=== PATIENT | male | born 1945 | race Caucasian/White ===

== ENCOUNTER → 2019-02-11 | Day surgery (SDC) | payer MEDICARE ==
--- NOTE | 2019-02-10 15:50 | Diagnostic Imaging Report ---
EXAM: CHEST 2 VIEWS, PA and lateral DATE: 02/10/2019 Time stamp on exam: 1:32 PM INDICATION: Preoperative COMPARISON: None FINDINGS: LINES/TUBES: None LUNGS: No consolidations or edema. Left retrocardiac calcified granulomas. PLEURA: No effusions or pneumothorax. HEART AND MEDIASTINUM: Normal size and contour. BONES AND SOFT TISSUES: Prominent left lower lung field nipple shadow. Degenerative changes of the spine. IMPRESSION: No acute thoracic abnormality. Signed by: Dr. Kristopher Buenrostro DO on 02/10/2019 3:47 PM
[~2019-02-11] MED LIST: CIPROFLOXACIN; DEXAMETHASONE SOD PHOS INJ 4 MG/ML VIAL ONE; EPHEDRINE SULFATE INJ 50 MG/10 ML SYR ONE; FENTANYL CITRATE/PF 100MCG/2 ML INJ ONE; GLYCOPYRROLATE INJ 1MG/ 5 ML SYR ONE; HYDRALAZINE HCL25 MG PO; IOPAMIDOL 610MG/1ML 300 MG/ML VIAL IV ONE; LEVOFLOXACIN 500MG/D5W 100ML 100 ML IV ONE; LIDOCAINE HCL 2% LOCAL INJ 5 ML SDV VIAL INJ ONE; MENS MULTIVITAMIN PO; ONDANSETRON HCL INJ 2MG/ML 2ML 2 MG/ML VIAL ONE; OXYBUTYNIN CHLOR5 MG PO; PROPOFOL IV EMULSION 10 MG/ML 20 ML VIAL ONE; SEVOFLURANE INHAL SOLN 250 ML PEN BTL ONE; ULTRAM50 MG PO; VELAFAXINE PO; Z.0.AMLODIPINE BESY1 PO; Z.0.ATENOLOL50 MG PO; Z.0.BABY ASPIRIN81 M PO; Z.0.GEMFIBROZIL600 M PO; Z.0.HYDRALAZINE HCL5 PO; Z.0.LEVOTHYROXINE50 PO; Z.0.LEXAPRO10 MG PO; Z.0.PRAVASTATIN SOD4 PO; Z.0.TAMSULOSIN HCL0. PO
--- OUTSIDE RECORDS SUMMARY | 2019-02-11 07:29 | XMS REPORT ---
Author Author [facility] Address Unknown Phone Unavailable Care Team Providers Care Nephrologist Name Role Phone Claudia TALAVERA Unavailable Unavailable Problems This patient has no known problems. Allergies, Adverse Reactions, Alerts This patient has no known allergies or adverse reactions. Medications This patient has no known medications. Results Test Description Test Time Test Comments Text Results Atomic Results Result Comments CHEST 2 VIEWS 2019-02-10 15:45:00 [place] [address] Patient Name: FREDA SOOD MR #: [id number] : 1945 Age/Sex: 73/M Req #: [id number] Adm Physician: Ordered by: ROSITA TALAVERA MD Report #: [id number] Location: OR Room/Bed: Procedure: [id number] DX/CHEST 2 VIEWS Exam Date: 02/10/19 Exam Time: 1340 REPORT STATUS: Signed EXAM: CHEST 2 VIEWS, PA and lateral DATE: 02/10/2019 Time stamp on exam: 1:32 PM INDICATION: Preoperative COMPARISON: None FINDINGS: LINES/TUBES: None LUNGS: No consolidations or edema. Left retrocardiac calcified granulomas. PLEURA: No effusions or pneumothorax. HEART AND MEDIASTINUM: Normal size and contour. BONES AND SOFT TISSUES: Prominent left lower lung field nipple shadow. Degenerative changes of the spine. IMPRESSION: No acute thoracic abnormality. Signed by: Dr. Danny Buenrostro DO on 02/10/2019 3:47 PM Dictated By: DANNY BUENROSTRO DO 1547 Transcribed By: LEELEE on 02/10/19 1540 COPY TO: ROSITA TALAVERA MD
--- OUTSIDE RECORDS SUMMARY | 2019-02-11 07:29 | XMS REPORT | Clinical Summary ---
Author Author [facility] Address Unknown Phone Unavailable Care Team Providers Care Spiral Tube Winder Name Role Phone Hafsa Euceda MD PCP Allergies Not on File Medications Not on file Active Problems Not on file Encounters Care Team Description Date Type Specialty Charlie Maradiaga MD Uric acid nephrolithiasis (Primary Dx); Calculus of other lower urinary tract location 02/09/2019 Transcribe Access Orders Jasbir Billingsley MD Malignant neoplasm of urinary bladder, unspecified site (HCC) 08/04/2018 Hospital Radiology Encounter Jasbir Billingsley MD Malignant neoplasm of urinary bladder, unspecified site (HCC) (Primary Dx) 07/29/2018 Transcribe Access Orders after 02/10/2018 Social History Date Tobacco Use Types Packs/Day Years Used Never Assessed Sex Assigned at Date Recorded Not on file Industry Job Start Date Occupation Not on file Not on file Not on file Travel End Travel History Travel Start No recent travel history available. Last Filed Vital Signs Not on file Plan of Treatment Care Team Description Date Type Specialty Alo Marie MD [address] [place], [place] [id number] 02/11/2019 Pre-Admit Pre-Admission Testing Testing Appointment Alo Marie MD [address] [place], [place] [id number] 02/18/2019 Hospital General Surgery Encounter Alo Marie MD [address] [place], [place] [address] OPEN RELEASE, CARPAL TUNNEL-LEFT WRIST 02/18/2019 Surgery General Surgery Health Maintenance Due Date Last Done Comments COLONOSCOPY SCREENING 1993 SHINGLES VACCINES (#1) 1993 65+ PNEUMOCOCCAL VACCINE 2008 (1 of 2 - PCV13) INFLUENZA VACCINE 03/19/2019 Procedures Comments Procedure Name Priority Date/Time Associated Diagnosis XR ABDOMEN 1 VW Routine 02/09/2019 Uric acid nephrolithiasis 2:35 PM CDT Calculus of other lower urinary tract location PET CT SKULL BASE TO MID Routine 08/04/2018 Malignant neoplasm of THIGH 1:00 PM [employer]PUTY DISTRICT CUST[employer] DIRECTOR urinary bladder, unspecified site (HCC) POC GLUCOSE Routine 08/04/2018 10:36 AM DEPUTY DISTRICT CUSTOMS DIRECTOR after 02/10/2018 Results * XR Abdomen 1 Vw (02/09/2019 2:35 PM CDT) Specimen Narrative Performed At EXAMINATION:XR ABDOMEN 1 VW [facility] INDICATION:N20.0 Calculus of kidney, N21.8 Other lower urinary tract calculus, n20.0 n20.1 COMPARISON:KUB from April 07, 2012 IMPRESSION: 1.Bilateral nephrolithiasis with a 6 mm calculus projecting over the right interpolar region, 5 mm calculus projecting over the left upper pole and 4 mm calculus projecting over the left lower pole. 2.Bowel gas pattern is nonspecific, nonobstructive. Vascular calcifications. 3.Degenerative changes of the osseous structures. Left lower lobe calcified granulomas [id number] Procedure Note Interface, Radiology Results Incoming - 02/09/2019 2:59 PM CDT EXAMINATION: XR ABDOMEN 1 VW INDICATION: N20.0 Calculus of kidney, N21.8 Other lower urinary tract calculus, n20.0 n20.1 COMPARISON:KUB from April 07, 2012 IMPRESSION: 1. Bilateral nephrolithiasis with a 6 mm calculus projecting over the right interpolar region, 5 mm calculus projecting over the left upper pole and 4 mm calculus projecting over the left lower pole. 2. Bowel gas pattern is nonspecific, nonobstructive. Vascular calcifications. 3. Degenerative changes of the osseous structures. Left lower lobe calcified granulomas [id number] Performing Organization Address City/State/Zipcode Phone Number [facility] [address] [place] [address] * PET/CT Skull Base To Mid Thigh (08/04/2018 1:00 PM DEPUTY DISTRICT CUSTOMS DIRECTOR) Specimen Narrative Performed At PROCEDURE:PET CT SKULL BASE TO MID THIGH [facility] INDICATION:Restaging bladder cancer.Subsequent treatment strategy. TECHNIQUE:Blood glucose measured at the time of injection was 101 mg/dL. The patient was then injected with 13.4 mCi of 18F-FDG, IV.Approximately one hour later, PET images were acquired from the skull base to the mid thighs. Corresponding, low dose, non-contrast CT scanning was performed as part of the attenuation correction process.Automated dose exposure control was utilized. COMPARISON:No relevant comparison imaging. FINDINGS: Head and neck:No suspicious brain uptake.Normal uptake is seen in the visualized sinuses, orbits, nasopharynx, and oropharynx.Uptake by the larynx is normal.No suspicious neck lymph node uptake. Chest:No abnormal mediastinal, hilar, or axillary lymph node uptake.No suspicious pulmonary uptake.Prior granulomatous disease. Abdomen:Normal uptake is seen in the stomach, spleen, pancreas, liver, and adrenal glands.No abnormal retroperitoneal or mesenteric lymph node uptake.Nonobstructing renal calculi. Pelvis:Physiologic bowel uptake.No abnormal pelvic sidewall or inguinal lymph node uptake.The bladder is not well evaluated, given urinary excretion of tracer. Review of the osseous structures demonstrates no suspicious uptake. IMPRESSION: 1.No evidence for metastatic bladder cancer. 2.Evaluation of the primary malignancy is not possible based on this study, given urinary excretion of tracer. [facility]-[id number] Procedure Note Interface, Radiology Results Incoming - 08/04/2018 3:53 PM DEPUTY DISTRICT CUSTOMS DIRECTOR PROCEDURE: PET CT SKULL BASE TO MID THIGH INDICATION: Restaging bladder cancer. Subsequent treatment strategy. TECHNIQUE: Blood glucose measured at the time of injection was 101 mg/dL. The patient was then injected with 13.4 mCi of 18F-FDG, IV. Approximately one hour later, PET images were acquired from the skull base to the mid thighs. Corresponding, low dose, non-contrast CT scanning was performed as part of the attenuation correction process. Automated dose exposure control was utilized. COMPARISON: No relevant comparison imaging. FINDINGS: Head and neck: No suspicious brain uptake. Normal uptake is seen in the visualized sinuses, orbits, nasopharynx, and oropharynx. Uptake by the larynx is normal. No suspicious neck lymph node uptake. Chest: No abnormal mediastinal, hilar, or axillary lymph node uptake. No suspicious pulmonary uptake. Prior granulomatous disease. Abdomen: Normal uptake is seen in the stomach, spleen, pancreas, liver, and adrenal glands. No abnormal retroperitoneal or mesenteric lymph node uptake. Nonobstructing renal calculi. Pelvis: Physiologic bowel uptake. No abnormal pelvic sidewall or inguinal lymph node uptake. The bladder is not well evaluated, given urinary excretion of tracer. Review of the osseous structures demonstrates no suspicious uptake. IMPRESSION: 1. No evidence for metastatic bladder cancer. 2. Evaluation of the primary malignancy is not possible based on this study, given urinary excretion of tracer. [facility]-[id number] Performing Organization Address City/State/Zipcode Phone Number [facility] [address] [place] [address] * POC glucose (08/04/2018 10:36 AM DEPUTY DISTRICT C[employer]S DIRECTOR) POC glucose 101 (H) 65 - 100 mg/dL [facility] Comment: HUGO BARNHART Meter ID: [id number] [facility] Jointer Machine: [facility] Specimen Performing Organization Address City/State/Zipcode Phone Number [facility] DEPARTMENT OF [address] [place] [address] PATHOLOGY AND GENOMIC MEDICINE [place] [facility] [place] [address] after 02/10/2018 Insurance Type Payer Benefit Subscriber ID Effective Phone Address Plan / Dates Group PPO HUMANA MEDICARE HUMANA xxxxxxxxx 2017-P MEDICARE resent PPO/PFFS/E [facility] Advance Directives Patient has advance care planning documents on file. For more information, pleas e contact: [facility] [address] [place] [address]
[2019-02-11 08:15] LABS: BASOPHILS % 0.1 % (0.0-1.0); EOSINOPHILS # (AUTO) 0.3 (0.0-0.4); EOSINOPHILS % 3.3 % (0.0-6.0); HEMATOCRIT 42.3 % (38.2-49.6); HEMOGLOBIN 14.7 g/dL (14.0-18.0); LYMPHOCYTES # (AUTO) 1.9 (1.0-3.2); LYMPHOCYTES % 23.5 % (18.0-39.1); MEAN CORPUSCULAR HEMOGLOBIN 30.3 pg (28-32); MEAN CORPUSCULAR HGB CONC 34.8 g/dL (31-35); MEAN CORPUSCULAR VOLUME 87.2 fL (81-99); MONOCYTES # (AUTO) 0.7 (0.2-0.8); MONOCYTES % 8.8 % (4.4-11.3); NEUTROPHILS # (AUTO) 5.2 (2.1-6.9); NEUTROPHILS % 64.1 % (38.7-80.0); PLATELET COUNT 201 x10e3/uL (140-360); RED BLOOD COUNT 4.85 x10e6/uL (4.3-5.7); RED CELL DISTRIBUTION WIDTH 13.2 % (11.7-14.4)
[2019-02-11 08:33] LABS: INR 0.92; PROTHROMBIN TIME 12.9 seconds (11.9-14.5)
[2019-02-11 08:34] LABS: PARTIAL THROMBOPLASTIN TIME 32.3 seconds (23.8-35.5)
[2019-02-11 08:38] LABS: ANION GAP 13.7 mmol/L (8-16); BLOOD UREA NITROGEN 14 mg/dL (7-26); BUN/CREATININE RATIO 16 (6-25); CALCIUM 9.6 mg/dL (8.4-10.2); CARBON DIOXIDE 26 mmol/L (22-29); CHLORIDE 103 mmol/L (98-107); CREATININE, SERUM 0.88 mg/dL (0.72-1.25); EST GLOMERULAR FILTRATION RATE > 60 ML/MIN (60-); GLUCOSE 96 mg/dL (74-118); POTASSIUM 3.7 mmol/L (3.5-5.1); SODIUM 139 mmol/L (136-145)
[2019-02-11 11:25] VITALS: BP 130/74
--- NOTE | 2019-02-12 07:51 | Operative Report ---
DATE OF PROCEDURE: 02/11/2019 SURGEON: Charlie Maradiaga MD PREOPERATIVE DIAGNOSES: 1. Bilateral renal calculi. a. Left renal calculi. 2. Upper pole renal calculus, 6 x 6 mm. 3. Left lower pole renal calculus, 6 x 6 mm. 4. Right renal calculus. 5. History of transitional cell carcinoma of the bladder. POSTOPERATIVE DIAGNOSES: 1. Bilateral renal calculi. a. Left renal calculi. 2. Upper pole renal calculus, 6 x 6 mm. 3. Left lower pole renal calculus, 6 x 6 mm. 4. Right renal calculus. 5. History of transitional cell carcinoma of the bladder. 6. No recurrence of his transitional cell carcinoma of the bladder. OPERATIONS: 1. Left renal ESWL 2000 shocks for the upper pole calculus. 2. 2000 shocks for the lower pole calculus. 3. Cystourethroscopy. SUPERVISOR [employer] DEPARTMENT: RONEL Dorsey. ANESTHETIC: General. DESCRIPTION OF PROCEDURE: Mr. Miranda is a 73-year-old male, who is very well known to me with a history of transitional cell carcinoma of the bladder. He has been followed for bilateral renal calculi, and at this point, the calculi have reached a size where they will be having more issues and problems. For this reason, he was brought for the ESWL and cystourethroscopy. This patient was placed on the table in the supine position and the left upper pole calculus was brought into position between F1 and F2 of the fluoroscopic monitor. The lithotripsy was started, starting at 2 kilovolts and slowly and gradually increased to 7 kilovolts. Observation of the stone pulverization was done at 200-250 shocks, and at 2000 shocks, it was felt that the stone has completely pulverized. The lithotripsy was then moved to the lower pole and again the lower pole calculus was brought into position between F1 and F2 of the fluoroscopic monitor. The lithotripsy was then started, starting at 2 kilovolts and again it is increasing to 7 kilovolts. Observation of the stone pulverization was done at 200-250 shocks, and at 2000 shocks, it was felt that the stone has completely pulverized. The lithotripsy was shut down and the patient was pulled back down on the table and placed on the table in the lithotomy position. The patient was prepped in a sterile manner. A #22-Welsh cystoscope was used and cystourethroscopy was performed and it was noted that the urethra was normal. The prostatic urethra was post resection and were resected. Cystoscopy was then performed using both right angle and the Foroblique lens and it was noted that the bladder mucosa was normal with no evidence of gross tumor, pathology, or any papillary lesions. The bladder wall was normal. Both ureteral orifices were seen and were within normal position configuration efflux. Plans for this patient is to be placed on Cipro 250 mg one twice a day for five days. Ultracet tablet one every 6 to 8 hours p.r.n. and was given 15. He is to return to the office in one week. At that time, a KUB will be performed and if the stone has completely pulverized and pass, we will go ahead after the right renal calculus. Charlie Maradiaga MD MA/LEONID /[id number]
== END | disposition home or self-care (01) ==
LOC: OR 07:08
PROVIDERS: ATTEND Specialist
DX: N20.0 Calculus of kidney (principal); Z85.51 Personal history of malignant neoplasm of bladder; G56.02 Carpal tunnel syndrome, left upper limb; I10 Essential (primary) hypertension; E78.5 Hyperlipidemia, unspecified; F32.9 Major depressive disorder, single episode, unspecified; Z01.810 Encounter for preprocedural cardiovascular examination; Z01.818 Encounter for other preprocedural examination; Z79.82 Long term (current) use of aspirin
CPT/HCPCS: 36415; 50590; 52000; 71046; 80048; 85025; 85610; 85730; 93005; J1100; J1956; J2001; J2405; J2704; J3490; J3010

== ENCOUNTER → 2019-03-04 | Day surgery (SDC) | payer MEDICARE ==
[~2019-03-04] MED LIST changes: -EPHEDRINE SULFATE INJ 50 MG/10 ML SYR ONE; -FENTANYL CITRATE/PF 100MCG/2 ML INJ ONE; -GLYCOPYRROLATE INJ 1MG/ 5 ML SYR ONE; -IOPAMIDOL 610MG/1ML 300 MG/ML VIAL IV ONE; +MIDAZOLAM HCL 2 MG/2 ML VIAL ONE; +PROMETHAZINE HCL (IM) 25 MG/ML VIAL ONE
--- OUTSIDE RECORDS SUMMARY | 2019-03-04 08:14 | XMS REPORT | Clinical Summary ---
Author Author [facility] Address Unknown Phone Unavailable Care Team Providers Care Gaggerman Name Role Phone Hafsa Euceda MD PCP Allergies No Known Allergies Medications End Date Status Medication Sig Dispensed Refills Start Date Active traMADol-acetaminophen TK ONE T 0 (ULTRACET) 37.5-325 mg EVERY 6-8 9 per tablet HOURS PRN Active venlafaxine XR 0 (EFFEXOR-XR) 150 MG 24 hr 9 capsule Active ciprofloxacin HCl (CIPRO) TK 1 T PO 0 250 MG tablet BID 9 Active Problems Not on file Encounters Care Team Description Date Type Specialty Radha Maradiaga MD Calculus of kidney (Primary Dx); Calculus of ureter 02/23/2019 Transcribe Access Orders Olivier Orozco MD 02/17/2019 Anesthesia General Surgery Event Alo Marie MD Preop testing (Primary Dx) 02/16/2019 Pre-Admit Pre-Admission Testing Testing Appointment Charlie Maradiaga MD Uric acid nephrolithiasis (Primary Dx); Calculus of other lower urinary tract location 02/09/2019 Transcribe Access Orders Jasbir Billingsley MD Malignant neoplasm of urinary bladder, unspecified site (HCC) 08/04/2018 Hospital Radiology Encounter Jasbir Billingsley MD Malignant neoplasm of urinary bladder, unspecified site (HCC) (Primary Dx) 07/29/2018 Transcribe Access Orders after 03/03/2018 Family History Medical History Relation Name Comments Heart disease Father Heart disease Mother Relation Name Status Comments Father Mother Social History Date Tobacco Use Types Packs/Day Years Used Never Smoker Smokeless Tobacco: Never Used Alcohol Use Drinks/Week oz/Week Comments Yes 6 Cans of 4.8 6beers per week with 2 shots whiskey beer 2 Shots of liquor Sex Assigned at Date Recorded Not on file Industry Job Start Date Occupation Not on file Not on file Not on file Travel End Travel History Travel Start No recent travel history available. Last Filed Vital Signs Time Taken Vital Sign Reading 02/16/2019 4:02 PM CDT Blood Pressure 128/71 02/16/2019 4:02 PM CDT Pulse 61 02/16/2019 4:02 PM CDT Temperature 37.2 C (99 F) 02/16/2019 4:02 PM CDT Respiratory Rate 20 02/16/2019 4:02 PM CDT Oxygen Saturation 95% - Inhaled Oxygen - Concentration 02/16/2019 4:02 PM CDT Weight 72.3 kg (159 lb 8 oz) 02/16/2019 4:02 PM CDT Height 172.7 cm (5' 8") 02/16/2019 4:02 PM CDT Body Mass Index 24.25 Plan of Treatment Health Maintenance Due Date Last Done Comments COLONOSCOPY SCREENING 1993 SHINGLES VACCINES (#1) 1993 65+ PNEUMOCOCCAL VACCINE 2008 (1 of 2 - PCV13) INFLUENZA VACCINE 03/19/2019 Procedures Comments Procedure Name Priority Date/Time Associated Diagnosis XR ABDOMEN 1 VW Routine 02/23/2019 Calculus of kidney 9:59 AM CDT Calculus of ureter ECG PRE/POST OP Routine 02/16/2019 Preop testing 4:25 PM CDT ESTIMATED GFR Routine 02/16/2019 4:14 PM CDT BASIC METABOLIC PANEL Routine 02/16/2019 Preop testing 4:14 PM CDT HEMOGLOBIN A1C Routine 02/16/2019 Preop testing 4:14 PM CDT HC COMPLETE BLD COUNT Routine 02/16/2019 Preop testing W/AUTO DIFF 4:14 PM CDT XR ABDOMEN 1 VW Routine 02/09/2019 Uric acid nephrolithiasis 2:35 PM CDT Calculus of other lower urinary tract location PET CT SKULL BASE TO MID Routine 08/04/2018 Malignant neoplasm of THIGH 1:00 PM BARKEEPER urinary bladder, unspecified site (HCC) POC GLUCOSE Routine 08/04/2018 10:36 AM BARKEEPER after 03/03/2018 Results * XR Abdomen 1 Vw (02/23/2019 9:59 AM CDT) Only the most recent of 2 results within the time period is included. Specimen Narrative Performed At EXAMINATION:[facility] 1 [facility]:N20.0 Calculus of kidney, N20.1 Calculus of ureter, n20.0n20.1 COMPARISON:02/09/2019 Impression: XR ABDOMEN 1 VW images are submitted. Comparison is made to a prior study from 02/09/2019. Bowel gas is scattered throughout small bowel and colon. There is no evidence of any obstruction. The right kidney has a 6 mm stone seen overlying the right lower pole. The stone was seen on the previous study. The previously seen stones in the left upper pole and left lower pole not seen on the current study. [id number] Procedure Note Interface, Radiology Results Incoming - 02/23/2019 11:46 AM CDT EXAMINATION: XR ABDOMEN 1 VW CLINICAL HISTORY: N20.0 Calculus of kidney, N20.1 Calculus of ureter, n20.0 n20.1 COMPARISON: 02/09/2019 Impression: XR ABDOMEN 1 VW images are submitted. Comparison is made to a prior study from 02/09/2019. Bowel gas is scattered throughout small bowel and colon. There is no evidence of any obstruction. The right kidney has a 6 mm stone seen overlying the right lower pole. The stone was seen on the previous study. The previously seen stones in the left upper pole and left lower pole not seen on the current study. [id number] Performing Organization Address City/State/Zipcode Phone Number [facility] [address] [place] [address] * ECG Pre/Post Op (02/16/2019 4:25 PM CDT) Ventricular 47 [facility] rate Atrial rate 47 [facility] OK interval 176 [facility] QRSD interval 92 [facility] QT interval 434 [facility] QTC interval 384 [facility] P axis 1 -21 [facility] QRS axis 1 -42 [facility] T wave axis 60 [facility] EKG impression Marked sinus bradycardia-Left [facility] axis deviation-Abnormal ECG-In automated comparison with ECG of 11-JUL-2016 12:23,-No significant change was found- Specimen Narrative Performed At Performing Organization Address City/State/Zipcode Phone Number [facility] MUSE [address] [place] [address] * Estimated GFR (02/16/2019 4:14 PM CDT) Estimated GFR 73 mL/min/1.73 m2 GIVEN Comment: [facility] G1 >=90 Normal or high G2 60-89Mildly decreased C4r95-64 Mildly to moderately decreased G5v29-72 Moderately to severely decreased G4 15-29Severely decreased G5 <15Kidney failure The eGFR was calculated using the Chronic Kidney Disease Epidemiology Collaboration (CKD-EPI) equation. Interpretation is based on recommendations of the National Kidney Foundation-Kidney Disease Outcomes Quality Initiative (NKF-KDOQI) published in 2014. Specimen Plasma specimen Performing Organization Address City/State/Zipcode Phone Number [facility] [address] [facility] [place] [address] PATHOLOGY AND GENOMIC MEDICINE [facility] [address] * CBC with platelet and differential (02/16/2019 4:14 PM CDT) Pathologist [facility] WBC 7.7 4.2 - 11.0 k/uL [facility] RBC 4.94 4.04 - 5.86 m/uL [facility] HGB 14.8 13.0 - 17.3 g/dL [facility] HCT 44.6 34.0 - 45.0 % [facility] MCV 90.3 80.0 - 98.0 fL [facility] MCH 30.0 27.0 - 34.0 pg [facility] MCHC 33.2 31.5 - 36.5 g/dL [facility] RDW - SD 42.4 37.0 - 51.0 fL [facility] MPV 10.1 7.4 - 10.4 fL [facility] Platelet count 192 150 - 400 k/uL [facility] Nucleated RBC 0.00 /100 WBC [facility] Neutrophils 60.8 36.0 - 66.0 % [facility] Lymphocytes 26.3 24.0 - 44.0 % [facility] Monocytes 9.1 (H) 0.0 - 6.0 % [facility] Eosinophils 3.1 0.0 - 6.0 % [facility] Basophils 0.3 0.0 - 1.2 % [facility] Immature 0.4 0.0 - 1.0 % GIVEN granulocytes [facility] Specimen Blood Performing Organization Address City/State/Zipcode Phone Number [place] [phone] [place] [address] PATHOLOGY AND GENOMIC MEDICINE [address] * Hemoglobin A1c (02/16/2019 4:14 PM CDT) Pathologist [facility] Hemoglobin A1C 5.2 4.0 - 5.6 % GIVEN Comment: LATTER-DAY HbA1c cutoffs for diagnosing [facility] diabetes: HOSPITAL 4.0% - 5.6%=normal 5.7% - 6.4%=increased risk for diabetes (prediabetes) >=6.5%=diabetes Goals for glycemic control (ADA 2016) < 7.0%Target for non adults with diabetes. More or less stringent targets may be appropriate for individual patients. <7.5% Target for Children and adolescents with type 1 diabetes. Specimen Blood Performing Organization Address City/State/[place] [address] PATHOLOGY AND GENOMIC MEDICINE [address] * Basic metabolic panel (02/16/2019 4:14 PM CDT) [facility] Sodium 143 135 - 150 mEq/L [facility] Potassium 3.8 3.5 - 5.0 mEq/L [facility] Chloride 102 98 - 112 mEq/L [facility] CO2 26 24 - 31 mmol/L [facility] Anion gap 15@ANIO 7 - 15 mEq/L [facility] BUN 19 (H) 7 - 18 mg/dL [facility] Creatinine 1.00 0.70 - 1.20 mg/dL [facility] Glucose 80 65 - 100 mg/dL [facility] Calcium 9.8 8.8 - 10.2 mg/dL [facility] Specimen Plasma specimen Performing Organization Address City/State/Zipcode Phone Number [facility] OF [address] [place] [address] PATHOLOGY AND GENOMIC MEDICINE [facility] [address] [place] [address] * PET/CT Skull Base To Mid Thigh (08/04/2018 1:00 PM BARKEEPER) Specimen Narrative Performed At PROCEDURE:PET CT SKULL [...] this study, given urinary excretion of tracer. [facility]-[id number] Procedure Note Interface, Radiology Results Incoming - 08/04/2018 3:53 PM BARKEEPER PROCEDURE: PET CT SKULL BASE TO MID [...] this study, given urinary excretion of tracer. [facility]-[id number] Performing Organization Address City/[facility]/Zipcode Phone Number [facility] [address] [place] [address] * POC glucose (08/04/2018 10:36 AM BARKEEPER) POC glucose 101 (H) 65 - 100 mg/dL GIVEN Comment: HUGO BARNHART Meter ID: [id number] [facility] Floor Installer: [facility] Specimen Performing Organization Address City/State/Zipcode Phone Number [facility] DEPARTMENT OF [address] [place] [address] PATHOLOGY AND GENOMIC MEDICINE GIVEN [place] [place], [place] [id number] [place] [address] after 03/03/2018 Insurance Type Payer Benefit Subscriber ID Effective Phone Address Plan / Dates Group PPO HUMANA MEDICARE HUMANA xxxxxxxxx 2017-P MEDICARE resent PPO/PFFS/E [facility] Advance Directives Patient has advance care planning documents on file. For more information, marzena west contact: Ramón Garza [address] [place] [address]
[2019-03-04 11:45] VITALS: BP 120/75
--- NOTE | 2019-03-04 12:16 | Operative Report ---
DATE OF PROCEDURE: 03/04/2019 SURGEON: Charlie Maradiaga MD PREOPERATIVE DIAGNOSIS: Right renal calculus 8 x 8 mm, right mid pole calyx. POSTOPERATIVE DIAGNOSIS: Right renal calculus 8 x 8 mm, right mid pole calyx. OPERATION: Right renal ESWL. ANESTHETIC: General. INDICATION: Mr. Miranda is a 73-year-old male, who is very well known to me with a history of recurrent kidney stones. He presented lately with pain on both CVA and a CT scan showed multiple bilateral renal calculi. On the left side, there were 3 stones upper mid and lower pole calices which were treated about 2 weeks ago with ESWL with complete pulverization. There was also a right renal mid calyx calculus 8 x 8 mm. This patient was brought to the hospital at this time for definitive treatment of his right renal calculus. The patient was placed on the table in the supine position and the stone was brought into position between F1 and F2 of the fluoroscopic monitor. Once this was done, the lithotripsy was started starting at 2 kilovolts and slowly and gradually increased to 7 kilovolts. Observation of the stone pulverization was done at 200 to 250 shocks intermittently. At 4000 shocks, it was felt that the stone has completely pulverized and powdered. The patient tolerated the procedure well and was taken to the recovery room in satisfactory condition. He is to return to the office in 3 weeks. DISCHARGE MEDICATIONS: 1. Cipro 500 mg 1 twice a day for 1 week. 2. Ultracet tablet 1 every 6 to 8 hours and was given 20. He is to return to the office in 3 weeks. Charlie Maradiaga MD MA/LEONID /[id number]
== END | disposition home or self-care (01) ==
LOC: OR 08:08
PROVIDERS: ATTEND Specialist
DX: N20.0 Calculus of kidney (principal); C67.9 Malignant neoplasm of bladder, unspecified; I10 Essential (primary) hypertension; E78.5 Hyperlipidemia, unspecified; E03.9 Hypothyroidism, unspecified; R00.1 Bradycardia, unspecified; F32.9 Major depressive disorder, single episode, unspecified; Z79.82 Long term (current) use of aspirin
CPT/HCPCS: 50590; J1100; J1956; J2001; J2250; J2405; J2550; J2704